=== PATIENT | male | born 2000 | race Caucasian/White ===

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

== ENCOUNTER 2018-01-15 01:22 | Emergency (ER) | payer SELFPAY ==
[~2018-01-15] VITALS: Ht 170.2 cm; Wt 59.1 kg
[2018-01-15 01:23] VITALS: BP 155/96; Ht 170.2 cm; Wt 59.1 kg
[2018-01-15] MEDS ORDERED: KEPPRA1000 MG PO ×2 (01:25)
[2018-01-15] MEDS ORDERED: HYDROCODONE-APA1 TAB PO (20:35)
== END 2018-01-15 02:10 | disposition left against medical advice (07) ==
LOC: D.ER 01:22
DX: R51 Headache (principal); M79.641 Pain in right hand; Y04.2XXA Assault by strike against or bumped into by another person, initial encounter; Y93.89 Activity, other specified; Y92.89 Other specified places as the place of occurrence of the external cause; I10 Essential (primary) hypertension; F17.200 Nicotine dependence, unspecified, uncomplicated

== ENCOUNTER 2018-01-15 18:29 | Emergency (ER) | payer SELFPAY ==
[~2018-01-15] VITALS: Ht 170.2 cm; Wt 60.0 kg
[~2018-01-15 18:29] MED LIST: KEPPRA1000 MG PO
[2018-01-15 19:05] VITALS: Ht 170.2 cm; Wt 60.0 kg
[2018-01-15 19:45] LABS: BASOPHILS 0.1 % (0-2); EOSINOPHILS 0.9 % (0-7); HEMATOCRIT 47.1 % (42.0-54.0); HEMOGLOBIN 16.8 g/dL (13.5-17.5); IMMATURE GRANULOCYTES 0.2 % (0-5); LYMPHOCYTES 15.6 % (15-50); MCH 31.4 pg (26.0-34.0); MCHC 35.7 g/dL (31.0-37.0); MONOCYTES 11.6 % (2-11); NEUTROPHILS 71.6 % (40-80); PLATELET COUNT 245 10x3/uL (130-400); RBC 5.35 10x6/uL (4.20-6.10); WBC 9.6 10x3/uL (4.8-10.8)
[2018-01-15 19:55] LABS: INR 1.13 (0.85-1.17); PROTIME 14.1 SECONDS (11.6-15.0)
[2018-01-15 20:00] LABS: ALBUMIN 4.6 g/dL (3.4-5.0); ALKALINE PHOSPHATASE 73 U/L (46-116); ALT (SGPT) 29 U/L (10-68); CALC OSMOLALITY 274 mosm/kg (275-300); CALCIUM 9.2 mg/dL (8.5-10.1); CARBON DIOXIDE 29.3 mmol/L (21.0-32.0); CHLORIDE - SERUM 101 mmol/L (98-107); CREATININE - SERUM 0.8 mg/dL (0.6-1.3); GLUCOSE 76 mg/dL (74-106); POTASSIUM - SERUM 3.6 mmol/L (3.5-5.1); SODIUM 138 mmol/L (136-145); UREA NITROGEN 12 mg/dL (7-18); eGFR NON AFRICAN AMERICAN > 90 mL/min (90-120)
[2018-01-15] MEDS ORDERED: HYDROCODONE-APA1 TAB PO (20:35)
[2018-01-15 20:58] VITALS: BP 142/90
== END 2018-01-15 21:38 | disposition home or self-care (01) ==
LOC: D.ER 18:29
PROVIDERS: Family Medicine
DX: S02.641A Fracture of ramus of right mandible, initial encounter for closed fracture (principal); Y04.2XXA Assault by strike against or bumped into by another person, initial encounter; Y93.89 Activity, other specified; Y92.89 Other specified places as the place of occurrence of the external cause; G40.909 Epilepsy, unspecified, not intractable, without status epilepticus; I10 Essential (primary) hypertension; F17.200 Nicotine dependence, unspecified, uncomplicated

== ENCOUNTER 2018-01-17 14:50 | Emergency (ER) | payer SELFPAY ==
[~2018-01-17] VITALS: Ht 170.2 cm; Wt 60.8 kg
[~2018-01-17 14:50] MED LIST changes: +HYDROCODONE-APA1 TAB PO
[2018-01-17 15:58] VITALS: BP 137/88; Ht 170.2 cm; Wt 60.8 kg
[2018-01-19] MEDS ORDERED: ULTRAM50 MG PO (08:46)
== END 2018-01-18 02:55 | disposition left against medical advice (07) ==
LOC: D.ER 14:50
DX: S02.609G Fracture of mandible, unspecified, subsequent encounter for fracture with delayed healing (principal); S06.9X0D Unspecified intracranial injury without loss of consciousness, subsequent encounter; X58.XXXD Exposure to other specified factors, subsequent encounter; G40.909 Epilepsy, unspecified, not intractable, without status epilepticus; R11.0 Nausea; I10 Essential (primary) hypertension

== ENCOUNTER 2018-01-19 05:56 | Emergency (ER) | payer SELFPAY ==
[~2018-01-19] VITALS: Ht 170.2 cm; Wt 60.8 kg
[2018-01-19 06:05] VITALS: Ht 170.2 cm; Wt 60.8 kg
[2018-01-19] MEDS ORDERED: ULTRAM50 MG PO (08:46)
[2018-01-19 09:00] VITALS: BP 124/86
== END 2018-01-19 09:01 | disposition home or self-care (01) ==
LOC: D.ER 05:56
DX: S02.609G Fracture of mandible, unspecified, subsequent encounter for fracture with delayed healing (principal); X58.XXXD Exposure to other specified factors, subsequent encounter; I10 Essential (primary) hypertension; R11.0 Nausea